=== PATIENT | female | born 1940 | race Caucasian/White ===

== ENCOUNTER 2021-09-27 13:32 | Observation (INO) ==
[2021-09-27] MEDS ORDERED: MORPHINE SULFATE INJ 4 MG IVP ONE (13:45)
[2021-09-27] MEDS ORDERED: ZOFRAN INJ 4 MG VIAL IVP ONE (13:48)
[2021-09-27] MEDS ORDERED: NS 500 ML IV 500 ML IV ONE (13:49)
[2021-09-27] MEDS ORDERED: ZOFRAN INJ 4 MG VIAL ONE (13:50)
[2021-09-27] MEDS ORDERED: MORPHINE SULFATE INJ 4 MG ONE (13:50)
--- NOTE | 2021-09-27 13:58 | DR.FBACK ---
HPI Time Seen Time Seen by Provider: 09/27/21 13:40 PCP Primary Care Physician: Olegario Complaint Chief Complaint Doctor Comments: 81 y/o female brought in by spouse after suffering fall. Was using a walker, spouse tried to help her off the curb, lost balance and fell backwards. Hit the back of her head. No LOC, but was stunned. Denies neck pain. Has a h/o cervical fusion. C/o mid to low back pain. Pain is sharp. Radiates from mid back to low back. + worse with palpation, breathing and movement. Better remaining still. Associated with dyspnea, slight nausea. Denies numbness or weakness. Denies blood thinning medicine. Only allergic to tetanus. Chief Complaint:: Pt c/o back pain and pain to posterior scalp s/p fall. She was sitting on a rolling scooter and her attempted to pull her off a curb and she fell onto her back. Pt c/o pain with respirations. She has a hematoma to her scalp. COVID-19 Coronavirus risk:travel/contact w/high risk person: No Has patient experienced Coronavirus symptoms: No Source History Provided: Patient Mode of Arrival Mode of Arrival: Wheelchair Timing Onset of Chief Complaint: 09/27/21 PMH PMH Past Medical History: Yes Past Medical History: Hypertension Past Surgical History: Yes Surgical History: Hysterectomy Family History History of Family Medical Conditions: No Social History Does patient currently use any type of tobacco product: No Have you used tobacco products in the last 12 months: No Type of Tobacco Use: None Does any household member use tobacco: No Alcohol Use: None Do you use any recreational Drugs:: No Lives With: Family Lives Where: Home Travel Risk Coronavirus risk:travel/contact w/high risk person: No Has patient experienced Coronavirus symptoms: No Infectious screening In the last 2 months have you had wt loss of >10#?: NO Have you had fever, night sweats or hemotysis?: No Have you traveled outside the country in the last 6 months?: No Isolation: Standard ROS Review of Systems Constitutional: No Symptoms Reported Eyes: No Symptoms Reported ENTM: No Symptoms Reported Respiratoy: Short of Breath Cardiovascular: No Symptoms Reported Gastrointestinal/Abdominal: Nausea Genitourinary: No Symptoms Reported Neurological: Headache Musculoskeletal: Back Pain Integumentary: No Symptoms Reported Hematologic/Lymphatic: No Symptoms Reported Endocrine: No Symptoms Reported Psychiatric: No Symptoms Reported All Other Systems: Reviewed and Negative PE Vitals Vital Signs: Temp Pulse Resp BP BP Pulse Ox 09/27/21 14:00 19 09/27/21 13:32 97.4 F L 75 20 194/88 98 07/21/21 14:39 122/56 General Limitations: No Limitations General Appearance: Alert and In Distress Head Head Exam: Other (+ posterior scalp hematoma, with tenderness, no active bleeding) Eyes Eye exam: Normal Appearance, PERRL and EOMI ENT ENT Exam: Normal Exam Chest Chest Inspection: Normal Inspection Respiratory Respiratory Exam: Normal Lung Sounds Bilat; negative Accessory Muscle Use and Respiratory Distress Respiratory Exam: Bilateral: Clear to Auscultation Cardiovascular Cardiovascular Exam: Regular Rate, Normal Rhythm and Normal Heart Sounds Abdominal Exam Abdominal Exam: Normal Inspection, Normal Bowel Sounds and Soft Extremities Extremities Exam: Normal Inspection and Full ROM Back Back Exam: Tenderness (thoracic and lumbar midline, no crepitus. ) Neurological Neurological Exam: Alert, Oriented X3 and CN II-XII Intact; negative Motor Sensory Deficit Psychiatric Psychiatric Exam: Normal Affect Skin Skin Exam: Warm, Dry and Intact MDM Differential Diagnosis Differential Diagnosis: Fracture (contusion, muscle strain, ICH) COURSE Treatment Treatment: Elderly female fell backwards, hit head/back. Will CT head, thoracic and lumbar areas. No cervical tenderness, has previous fusion. Given IV morphi ne/zofran. 1453 - pt doing better after IV analgesia. CT studies without acute abnormalities. Will d/c to home. To rest, use ice to heat. Tylenol for mild discomfort. Will prescribe low dose diazepam for muscle spasms. Pt does have tramadol at home, she can add on top. ROR XRAY XRAY Interpreted by: Radiologist X-ray Results: CT head, thoracic spine and lumbar spine - no acute abnormalities Opioid Opioid Risk Tool Age (Jay box if 16-45): No History of Preadolescent Sexual Abuse: No Total: 0 Total Score Risk Category: Low Risk Copyright: Garibay LR predicting aberrant behaviors Diagnosis Discharge Problem: Back contusion Qualifiers: Encounter type: initial encounter Contusion of head Qualifiers: Encounter type: initial encounter Contusion of head detail: scalp Qualified Code(s): S00.03XA - Contusion of scalp, initial encounter
[2021-09-27] MEDS: NS 500 ML IV 500 ML IV SCH ×2 (14:01→20:36)
--- NOTE | 2021-09-27 14:34 | CT ---
HISTORYFall, head injurySTUDYCT head without contrastTechnique: Axial noncontrast images with coronal and sagittal reformats. Dose reduction procedures were used with mA/kv adjusted for body size.[id number]/12/2019FINDINGSVentric les are normal in size shape and position. There is decreased attenuation in the periventricular white matter suggestive of small vessel vascular disease. Generalized cortical atrophy is present likely age related. There are no focal areas of abnormal attenuation to suggest recent or remote CVA, hemorrhage, contusion, mass lesion, or extra-axial fluid collection. The visualized sinuses are clear. The calvarium is intact.IMPRESSIONNo acute intracranial abnormalityGeneralized atrophy likely age relatedSmall-vessel diseaseElectronically signed by: MARY TIJERINA (Sep 27, 2021 14:32:28)
--- NOTE | 2021-09-27 14:42 | CT ---
HISTORYPt c/o back pain and pain to posterior scalp s/p fall. She was sitting on a rolling scooter and her attempted to pull her off a curb and she fell onto her backSTUDYTHORACIC SPINE W/O CONCOMPARISONNoneTECHNIQUEMultiple CT axial images of the thoracic spine were obtained without IV contrast. Coronal and sagittal images were reconstructed. Dose reduction techniques included Automated Exposure Control (AEC) and adjustment of mA and kV.FINDINGSThere is no significant scoliosis. The usual kyphosis is maintained.The heights of the vertebral bodies are normal. No subluxation. There is no fracture.Mild degenerative changes are present at multiple levels.Fixation hardware is present in the cervical spine.No pleural effusion or pneumothorax.IMPRESSION1. No acute findingElectronically signed by: Deondre Giordano (Sep 27, 2021 14:40:48)
--- NOTE | 2021-09-27 14:49 | CT ---
HISTORYPt c/o back pain and pain to posterior scalp s/p fall. She was sitting on a rolling scooter and her attempted to pull her off a curb and she fell onto her backSTUDYLUMBAR SPINE W/O [id number]/2021TECHNIQUEAxial images through the lumbar spine were performed without contrast. CT scan was performed following ALARA (As low as Reasonably Achievable).Coronal and Sagittal reformatted images were performed.FINDINGSThere 5 fep-wre-iyryzpu lumbar type vertebral bodies. There is preservation of the lumbar lordosis. There is no evidence of acute fractures, the sacroiliac joints demonstrate bilateral degenerative changes. There is no focal dilatation of the abdominal aorta. The lung bases demonstrate minimal increase of the interstitial markings. There is no evidence of adrenal masses. No hydronephrosis, no focal dilatation of the abdominal aorta. The prevertebral soft tissues and unremarkable.Findings in the axial images as follows:T10-T11 T11-T12,T12-L1 and L1-L2 demonstrate no focal abnormalitiesL2-L3 no evidence of a spinal canal or neural foraminal stenosisL3-L4 there is a small disc osteophyte and mild facet hypertrophy, no evidence of a spinal canal stenosis, there is mild bilateral neural foraminal stenosesL4-L5 there is again seen vacuum phenomenon. There is a central disc bulging, there has been interval increase air along the right paracentral inferior region that could correspond with a disc extrusion, there appears to be mass effect in the right epidural nerve root, there is xnlfoptk-tz-iaewtm narrowing of the spinal canal, there is severe ligamentum flavum and facet hypertrophy. There are lateral disc osteophyte with uyjlcowv-ca-ffoobk bilateral neural foraminal stenoses.L5-S1 there is a central disc osteophyte with a right paracentral component with mass effect in the S1 nerve root unchanged since prior study. There is a right lateral disc osteophyte with svouipjn-kp-nxfdxl right neural foraminal stenosis, the left neural foramina is patent.IMPRESSIONNo evidence of acute lumbar spine fracturesDegenerative disease at L4-L5 with increase air along the right paracentral inferior region probably due to a right paracentral disc extrusion. Zflurwtj-ei-znuqos narrowing of the spinal canal at L4-L5 due to posterior element hypertrophy and disc osteophyte.Unchanged right paracentral disc osteophyte at L5-S1 with mass effect in the right epidural nerve root and prwypgpn-er-dnkrib right neural foraminal stenosis.Electronically signed by: Maryanne Hobson (Sep 27, 2021 14:47:36)
--- NOTE | 2021-09-27 14:56 | RAD ---
HISTORYFall, back painSTUDYChest AP [id number]/17/2021FINDINGSHear t size is normal. Ev are normal. Right hemidiaphragm is chronically elevated. Lung combs are clear. No pleural effusion or pneumothorax is identified. Bony thorax is unremarkable.IMPRESSIONNo significant abnormality identifiedElectronically signed by: MARY TIJERINA (Sep 27, 2021 14:54:29)
[2021-09-27] MEDS ORDERED: ATIVAN INJ 2 MG VIAL IVP ONE (15:23)
[2021-09-27] MEDS ORDERED: ATIVAN INJ 2 MG VIAL ONE (15:25)
[2021-09-27] MEDS ORDERED: ATIVAN INJ 2 MG VIAL IVP PRN (19:17)
[2021-09-27] MEDS ORDERED: ULTRAM PO PRN (19:17)
[2021-09-27 20:16] VITALS: BMI 32.9
[2021-09-27] MEDS: COZAAR PO SCH (20:36)
[2021-09-27] MEDS: MORPHINE SULFATE INJ 4 MG IVP PRN (20:37)
[2021-09-27] MEDS ORDERED: APRESOLINE INJ 20 MG VIAL IVP PRN (23:28)
[2021-09-27] MEDS ORDERED: CATAPRES TAB 0.1 MG PO SCH (23:45)
[2021-09-27] MEDS: CATAPRES TAB 0.1 MG PO PRN (23:55)
[2021-09-27 23:57] LABS: BASOPHILS % (AUTO) 0.4 % (0.2-1.0); EOSINOPHILS # (AUTO) 0.1 x10^3/uL (0.0-0.2); HEMATOCRIT 37.2 % (36.0-47.0); HEMOGLOBIN 12.5 g/dL (12.0-16.0); LYMPHOCYTES # (AUTO) 1.5 X10^3/uL (1.3-2.9); LYMPHOCYTES % (AUTO) 18.1 % (21.0-51.0); MEAN CORPUSCULAR HEMOGLOBIN 30.1 pg (27.0-34.0); MEAN CORPUSCULAR HGB CONC 33.7 g/dL (33.0-35.0); MEAN CORPUSCULAR VOLUME 89.4 fL (80.0-100.0); MEAN PLATELET VOLUME 7.9 fL (7.4-11.0); MONOCYTES # (AUTO) 0.4 x10^3/uL (0.3-0.8); MONOCYTES % (AUTO) 5.3 % (0.0-13.0); NEUTROPHILS # (AUTO) 6.1 x10^3/uL (2.2-4.8); NEUTROPHILS % (AUTO) 75.2 % (42.0-75.0); PLATELET COUNT 287 X10^3/uL (150.0-450.0); RED BLOOD COUNT 4.16 X10^6/uL (3.5-5.4); RED CELL DISTRIBUTION WIDTH 14.6 % (11.6-16.5); WHITE BLOOD COUNT 8.1 X10^3/uL (3.6-10.0)
[2021-09-28 00:07] LABS: ALANINE AMINOTRANSFERASE 19 Units/L (12-78); ALKALINE PHOSPHATASE 115 Units/L (46-116); ASPARTATE AMINO TRANSFERASE 18 Units/L (15-37); BLOOD UREA NITROGEN 11 mg/dL (7-18); CALCIUM 8.4 mg/dL (8.5-10.1); CARBON DIOXIDE 31.1 mmol/L (21-32); CHLORIDE 105 mmol/L (98-107); COR CA(FOR HYPOALB) 9.2 mg/dL (8.5-10.1); COR NA(FOR HYPERGLY) 142 mmol/L (136-145); CREATININE 0.72 mg/dL (0.55-1.02); SODIUM 141 mmol/L (136-145); TOTAL PROTEIN 6.5 g/dL (6.4-8.2); eGFR NON BLACK RACES > 60 (>60)
[2021-09-28] MEDS: SOLU-Medrol 40 MG VIAL IVP SCH ×3 (00:07→13:40)
[2021-09-28] MEDS: NORCO 7.5/325 MG TAB PO PRN ×4 (00:37→20:19)
[2021-09-28] MEDS: NS 500 ML IV 500 ML IV SCH ×3 (02:00→13:41)
[2021-09-28] MEDS: MORPHINE SULFATE INJ 4 MG IVP PRN (04:49)
[2021-09-28 04:53] LABS: BILIRUBIN,URINE NEGATIVE (NEGATIVE); BLOOD/HEMOGLOBIN,URINE 1+ (NEGATIVE); GLUCOSE, URINE NEGATIVE (NEGATIVE); KETONES,URINE NEGATIVE (NEGATIVE); LEUKOCYTE ESTERASE ,URINE NEGATIVE (NEGATIVE); NITRITES,URINE NEGATIVE (NEGATIVE); PROTEIN,URINE NEGATIVE (NEGATIVE); UROBILINOGEN,URINE NORMAL (NORMAL)
[2021-09-28 05:10] LABS: APPEARANCE,URINE CLEAR (CLEAR); BACTERIA,URINE NEGATIVE /HPF (NEGATIVE); COLOR,URINE YELLOW (YELLOW); RBC,URINE 0-2 /HPF (0-3); SQUAMOUS EPITHELIAL CELL,UR RARE /HPF (NEGATIVE)
[2021-09-28] MEDS: COZAAR PO SCH ×2 (08:30→20:18)
[2021-09-28] MEDS: ZOFRAN INJ 4 MG VIAL IVP PRN ×2 (10:57→20:57)
--- NOTE | 2021-09-28 12:35 | RAD ---
Exam:ELBOW, RIGHTIndication: S/P FALL, C/O PAIN RT ELBOW AND HUMERUSComparison: [None available]Findings: [No acute fracture or malalignment of the right elbow. No significant joint effusion or fat pad displacement. Degenerative changes of the radial capitellar and ulna humeral joints. No localizing soft tissue swelling.]IMPRESSIONNo acute fracture or malalignment of the right elbow.Degenerative changes of the radial capitellar and ulna humeral joints.Electronically signed by: ROXANNA CHISHOLM (Sep 28, 2021 12:33:57)
--- NOTE | 2021-09-28 12:36 | RAD ---
Exam:HUMERUS, RIGHTIndication: S/P FALL, C/O PAIN RT ELBOW AND HUMERUSComparison: [None available]Findings: [The [right] humerus demonstrates no acute fracture or malalignment.No localizing soft tissue swelling.There is anatomic alignment of the AC and glenohumeral joints.Degenerate change the AC and elbow joints.Impression:No acute radiographic abnormality.Degenerative change of the AC and elbow joints.Electronically signed by: ROXANNA CHISHOLM (Sep 28, 2021 12:34:59)
[2021-09-28] MEDS: NS 1,000 ML IV 1,000 ML IV SCH (20:38)
[2021-09-29 06:05] LABS: BASOPHILS % (AUTO) 0.2 % (0.2-1.0); HEMATOCRIT 36.1 % (36.0-47.0); LYMPHOCYTES % (AUTO) 5.7 % (21.0-51.0); MEAN CORPUSCULAR HEMOGLOBIN 29.9 pg (27.0-34.0); MEAN CORPUSCULAR HGB CONC 33.3 g/dL (33.0-35.0); MEAN CORPUSCULAR VOLUME 89.9 fL (80.0-100.0); MEAN PLATELET VOLUME 8.8 fL (7.4-11.0); MONOCYTES # (AUTO) 0.5 x10^3/uL (0.3-0.8); MONOCYTES % (AUTO) 2.7 % (0.0-13.0); NEUTROPHILS # (AUTO) 15.5 x10^3/uL (2.2-4.8); NEUTROPHILS % (AUTO) 91.4 % (42.0-75.0); PLATELET COUNT 292 X10^3/uL (150.0-450.0); RED BLOOD COUNT 4.01 X10^6/uL (3.5-5.4); RED CELL DISTRIBUTION WIDTH 14.4 % (11.6-16.5)
[2021-09-29 06:12] LABS: BLOOD UREA NITROGEN 14 mg/dL (7-18); CALCIUM 8.4 mg/dL (8.5-10.1); CARBON DIOXIDE 28.5 mmol/L (21-32); CHLORIDE 109 mmol/L (98-107); COR NA(FOR HYPERGLY) 144 mmol/L (136-145); CREATININE 0.69 mg/dL (0.55-1.02); SODIUM 143 mmol/L (136-145); eGFR NON BLACK RACES > 60 (>60)
[2021-09-29 06:21] LABS: WHITE BLOOD COUNT 16.9 X10^3/uL (3.6-10.0)
[2021-09-29 06:58] LABS: BAND NEUTROPHILS % 4 % (0-10); PLATELET MORPHOLOGY COMMENT NORMAL (NORMAL)
[2021-09-29] MEDS: COZAAR PO SCH ×2 (08:27→20:00)
[2021-09-29] MEDS: NORCO 7.5/325 MG TAB PO PRN ×3 (08:27→19:54)
[2021-09-29] MEDS: NS 1,000 ML IV 1,000 ML IV SCH (10:08)
[2021-09-29] MEDS: ROCEPHIN VIAL 1 GRAM 1 G in NS 100 ML IV + SPIKE MINIBAG* 100 ML IV SCH (11:00)
--- NOTE | 2021-09-29 11:10 | PCM.PROG ---
Progress Note Progress Note for Day of Date of Exam: 09/28/21 Subjective Subjective: Patient seen at bedside, no events overnight. Patient admitted after having a fall. Imaging (-) for any acute fracture. Patient states pain being controlled with medications. She does complain for right arm and elbow pain. She reports some nausea. Labs reviewed Imaging reviewed Plan: will order right arm and elbow XRs. Continue steroids and pain control. Add Zofran. Advised patient so sit up as tolerated. Resume home medication. Monitor AM labs/imaging. Past Medical Family Social History Past Med/Fam/Surg Hx: No changes since H&P Allergies: Allergies tetanus and diphtheria toxoids Allergy (Verified 09/27/21 13:41) Vital Signs and I&O's Vital Signs: Temperature 97.6 F Pulse Rate [Right Brachial] 72 Pulse Rate [Left Radial] 64 Pulse Rate 75 Respiratory Rate 20 Blood Pressure [Right Arm] 127/60 Blood Pressure [Left Arm] 147/66 Blood Pressure 194/88 O2 Sat by Pulse Oximetry 99 Intake and Output: Intake & Output 09/26/21 09/27/21 09/28/21 09/29/21 23:59 23:59 23:59 23:59 Intake Total 620 / 620 2390 / 2390 100 / 100 Balance 620 / 620 2390 / 2390 100 / 100 Physical Exam Oriented: Normal Eyes: Normal Ear: Normal Nose: Normal Throat: Normal Respiratory: Normal Cardiovascular: Normal Auscultation: Bowel Sounds: Normal Tenderness: Normal Skin: Normal Musculoskeletal: Right, Arm, Forearm, Back:Thoracic, Back:Lumbar, Back:Midline, Back:Paraspinous, Tender and Motor Deficit Psychiatric: Normal Mood Description: Calm Affect: Normal Speech Pattern: Clear and Appropriate Laboratory and Diagnostics Result Diagrams: 09/29/21 05:20 09/29/21 05:20 Labs: 09/28/21 04:40 Urine,Clean Catch Urine Culture - Final Laboratory WBC 16.9 X10^3/uL (3.6-10.0) H D 09/29/21 05:20 RBC 4.01 X10^6/uL (3.5-5.4) 09/29/21 05:20 Hgb 12.0 g/dL (12.0-16.0) 09/29/21 05:20 Hct 36.1 % (36.0-47.0) 09/29/21 05:20 MCV 89.9 fL (80.0-100.0) 09/29/21 05:20 MCH 29.9 pg (27.0-34.0) 09/29/21 05:20 MCHC 33.3 g/dL (33.0-35.0) 09/29/21 05:20 RDW 14.4 % (11.6-16.5) 09/29/21 05:20 Plt Count 292 X10^3/uL (150.0-450.0) 09/29/21 05:20 Plt Count Comment Adequate (ADEQUATE) 09/29/21 05:20 MPV 8.8 fL (7.4-11.0) 09/29/21 05:20 Neut % (Auto) 91.4 % (42.0-75.0) H 09/29/21 05:20 Lymph % (Auto) 5.7 % (21.0-51.0) L 09/29/21 05:20 [place] % (Auto) 2.7 % (0.0-13.0) 09/29/21 05:20 Eos % (Auto) 0.0 % (0.9-2.9) L 09/29/21 05:20 Baso % (Auto) 0.2 % (0.2-1.0) 09/29/21 05:20 Neut # (Auto) 15.5 x10^3/uL (2.2-4.8) H 09/29/21 05:20 Lymph # (Auto) 1.0 X10^3/uL (1.3-2.9) L 09/29/21 05:20 [place] # (Auto) 0.5 x10^3/uL (0.3-0.8) 09/29/21 05:20 Eos # (Auto) 0.0 x10^3/uL (0.0-0.2) 09/29/21 05:20 Baso # (Auto) 0.0 X10^3/uL (0.0-0.1) 09/29/21 05:20 Absolute Nucleated RBC 0.0 /100WBC 09/29/21 05:20 Total Counted 100 09/29/21 05:20 Neutrophils % (Manual) 91 % (39-76) H 09/29/21 05:20 Band Neutrophils % 4 % (0-10) 09/29/21 05:20 Lymphocytes % (Manual) 5 % (13-43) L 09/29/21 05:20 Plt Morphology Comment Normal (NORMAL) 09/29/21 05:20 RBC Morphology Normal (NORMAL) 09/29/21 05:20 Sodium 143 mmol/L (136-145) 09/29/21 05:20 Corrected Sodium 144 mmol/L (136-145) 09/29/21 05:20 Potassium 4.6 mmol/L (3.5-5.1) 09/29/21 05:20 Chloride 109 mmol/L (98-107) H 09/29/21 05:20 Carbon Dioxide 28.5 mmol/L (21-32) 09/29/21 05:20 BUN 14 mg/dL (7-18) 09/29/21 05:20 Creatinine 0.69 mg/dL (0.55-1.02) 09/29/21 05:20 Est GFR (MDRD) Af Amer > 60 (>60) 09/29/21 05:20 Est GFR (MDRD) Non-Af > 60 (>60) 09/29/21 05:20 Glucose 129 mg/dL (65-99) H 09/29/21 05:20 Calcium 8.4 mg/dL (8.5-10.1) L 09/29/21 05:20 Corrected Calcium 9.2 mg/dL (8.5-10.1) 09/27/21 23:47 Total Bilirubin 0.30 mg/dL (0.2-1.0) 09/27/21 23:47 AST 18 Units/L (15-37) 09/27/21 23:47 ALT 19 Units/L (12-78) 09/27/21 23:47 Alkaline Phosphatase 115 Units/L (46-116) 09/27/21 23:47 Total Protein 6.5 g/dL (6.4-8.2) 09/27/21 23:47 Albumin 3.0 g/dL (3.4-5.0) L 09/27/21 23:47 Globulin 3.5 g/dL (2.5-4.5) 09/27/21 23:47 Albumin/Globulin Ratio 0.9 Ratio (1.1-2.1) L 09/27/21 23:47 Specimen Type Clean catch urine 09/28/21 04:40 Urine Color Yellow (YELLOW) 09/28/21 04:40 Urine Appearance Clear (CLEAR) 09/28/21 04:40 Urine pH 6.0 (5.0 - 8.0) 09/28/21 04:40 Ur Specific [place] 1.025 (1.000-1.030) 09/28/21 04:40 Urine Protein Negative (NEGATIVE) 09/28/21 04:40 Urine Glucose (UA) Negative (NEGATIVE) 09/28/21 04:40 Urine Ketones Negative (NEGATIVE) 09/28/21 04:40 Urine Occult Blood 1+ (NEGATIVE) 09/28/21 04:40 Urine Nitrite Negative (NEGATIVE) 09/28/21 04:40 Urine Bilirubin Negative (NEGATIVE) 09/28/21 04:40 Urine Urobilinogen Normal (NORMAL) 09/28/21 04:40 Ur Leukocyte Esterase Negative (NEGATIVE) 09/28/21 04:40 Urine RBC 0-2 /HPF (0-3) 09/28/21 04:40 Urine WBC 0-2 /HPF (0-5) 09/28/21 04:40 Ur Squamous Epith Cells Rare /HPF (NEGATIVE) 09/28/21 04:40 Urine Bacteria Negative /HPF (NEGATIVE) 09/28/21 04:40 Ur Culture Indicated? Yes/culture set up 09/28/21 04:40 SARS CoV-2 RNA Rapid CHERRI Negative (NEGATIVE) 09/27/21 17:42 Plan (1) Fall: Status: Acute Qualifiers: Encounter type: initial encounter Qualified Code(s): W19.XXXA - Unspecified fall, initial encounter (2) Multilevel degenerative disc disease: Status: Acute (3) Lumbar stenosis: Status: Acute Qualifiers: Neurogenic claudication status: unspecified Qualified Code(s): M48.061 - Spinal stenosis, lumbar region without neurogenic claudication (4) Contusion of head: Status: Acute Qualifiers: Contusion of head detail: scalp Encounter type: initial encounter Qualified Code(s): S00.03XA - Contusion of scalp, initial encounter
--- NOTE | 2021-09-29 11:16 | PCM.PROG ---
Progress Note Progress Note for Day of Date of Exam: 09/29/21 Subjective Subjective: Patient seen at bedside, no events overnight. She has not been able to get up much due to back pain. She sat up to eat but has no ambulated. She states her right arm is better. Urine Cx did show more than 3 organisms. Labs reviewed Imaging reviewed Plan: Will start Rocephin. PT consult, advised patient to sit up and change position as tolerated. Ambulate as tolerated. Discussed to use IS. Continue pain control. Monitor AM labs/imaging. Past Medical Family Social History Past Med/Fam/Surg Hx: No changes since H&P Allergies: Allergies tetanus and diphtheria toxoids Allergy (Verified 09/27/21 13:41) Review of Systems ROS: No change since H&P Vital Signs and I&O's Vital Signs: Temperature 97.6 F Pulse Rate [Right Brachial] 72 Pulse Rate [Left Radial] 64 Pulse Rate 75 Respiratory Rate 20 Blood Pressure [Right Arm] 127/60 Blood Pressure [Left Arm] 147/66 Blood Pressure 194/88 O2 Sat by Pulse Oximetry 99 Intake and Output: Intake & Output 09/26/21 09/27/21 09/28/21 09/29/21 23:59 23:59 23:59 23:59 Intake Total 620 / 620 2390 / 2390 100 / 100 Balance 620 / 620 2390 / 2390 100 / 100 Physical Exam Oriented: Normal Eyes: Normal Ear: Normal Nose: Normal Throat: Normal Respiratory: Normal Cardiovascular: Normal Auscultation: Bowel Sounds: Normal Tenderness: Normal Skin: Normal Musculoskeletal: Right, Arm, Forearm, Back:Thoracic, Back:Lumbar, Back:Midline, Back:Paraspinous, Tender and Motor Deficit Psychiatric: Normal Mood Description: Calm Affect: Normal Speech Pattern: Clear and Appropriate Laboratory and Diagnostics Result Diagrams: 09/29/21 05:20 09/29/21 05:20 Labs: 09/28/21 04:40 Urine,Clean Catch Urine Culture - Final Laboratory WBC 16.9 X10^3/uL (3.6-10.0) H D 09/29/21 05:20 RBC 4.01 X10^6/uL (3.5-5.4) 09/29/21 05:20 Hgb 12.0 g/dL (12.0-16.0) 09/29/21 05:20 Hct 36.1 % (36.0-47.0) 09/29/21 05:20 MCV 89.9 fL (80.0-100.0) 09/29/21 05:20 MCH 29.9 pg (27.0-34.0) 09/29/21 05:20 MCHC 33.3 g/dL (33.0-35.0) 09/29/21 05:20 RDW 14.4 % (11.6-16.5) 09/29/21 05:20 Plt Count 292 X10^3/uL (150.0-450.0) 09/29/21 05:20 Plt Count Comment Adequate (ADEQUATE) 09/29/21 05:20 MPV 8.8 fL (7.4-11.0) 09/29/21 05:20 Neut % (Auto) 91.4 % (42.0-75.0) H 09/29/21 05:20 Lymph % (Auto) 5.7 % (21.0-51.0) L 09/29/21 05:20 [place] % (Auto) 2.7 % (0.0-13.0) 09/29/21 05:20 Eos % (Auto) 0.0 % (0.9-2.9) L 09/29/21 05:20 Baso % (Auto) 0.2 % (0.2-1.0) 09/29/21 05:20 Neut # (Auto) 15.5 x10^3/uL (2.2-4.8) H 09/29/21 05:20 Lymph # (Auto) 1.0 X10^3/uL (1.3-2.9) L 09/29/21 05:20 [place] # (Auto) 0.5 x10^3/uL (0.3-0.8) 09/29/21 05:20 Eos # (Auto) 0.0 x10^3/uL (0.0-0.2) 09/29/21 05:20 Baso # (Auto) 0.0 X10^3/uL (0.0-0.1) 09/29/21 05:20 Absolute Nucleated RBC 0.0 /100WBC 09/29/21 05:20 Total Counted 100 09/29/21 05:20 Neutrophils % (Manual) 91 % (39-76) H 09/29/21 05:20 Band Neutrophils % 4 % (0-10) 09/29/21 05:20 Lymphocytes % (Manual) 5 % (13-43) L 09/29/21 05:20 Plt Morphology Comment Normal (NORMAL) 09/29/21 05:20 RBC Morphology Normal (NORMAL) 09/29/21 05:20 Sodium 143 mmol/L (136-145) 09/29/21 05:20 Corrected Sodium 144 mmol/L (136-145) 09/29/21 05:20 Potassium 4.6 mmol/L (3.5-5.1) 09/29/21 05:20 Chloride 109 mmol/L (98-107) H 09/29/21 05:20 Carbon Dioxide 28.5 mmol/L (21-32) 09/29/21 05:20 BUN 14 mg/dL (7-18) 09/29/21 05:20 Creatinine 0.69 mg/dL (0.55-1.02) 09/29/21 05:20 Est GFR (MDRD) Af Amer > 60 (>60) 09/29/21 05:20 Est GFR (MDRD) Non-Af > 60 (>60) 09/29/21 05:20 Glucose 129 mg/dL (65-99) H 09/29/21 05:20 Calcium 8.4 mg/dL (8.5-10.1) L 09/29/21 05:20 Corrected Calcium 9.2 mg/dL (8.5-10.1) 09/27/21 23:47 Total Bilirubin 0.30 mg/dL (0.2-1.0) 09/27/21 23:47 AST 18 Units/L (15-37) 09/27/21 23:47 ALT 19 Units/L (12-78) 09/27/21 23:47 Alkaline Phosphatase 115 Units/L (46-116) 09/27/21 23:47 Total Protein 6.5 g/dL (6.4-8.2) 09/27/21 23:47 Albumin 3.0 g/dL (3.4-5.0) L 09/27/21 23:47 Globulin 3.5 g/dL (2.5-4.5) 09/27/21 23:47 Albumin/Globulin Ratio 0.9 Ratio (1.1-2.1) L 09/27/21 23:47 Specimen Type Clean catch urine 09/28/21 04:40 Urine Color Yellow (YELLOW) 09/28/21 04:40 Urine Appearance Clear (CLEAR) 09/28/21 04:40 Urine pH 6.0 (5.0 - 8.0) 09/28/21 04:40 Ur Specific [place] 1.025 (1.000-1.030) 09/28/21 04:40 Urine Protein Negative (NEGATIVE) 09/28/21 04:40 Urine Glucose (UA) Negative (NEGATIVE) 09/28/21 04:40 Urine Ketones Negative (NEGATIVE) 09/28/21 04:40 Urine Occult Blood 1+ (NEGATIVE) 09/28/21 04:40 Urine Nitrite Negative (NEGATIVE) 09/28/21 04:40 Urine Bilirubin Negative (NEGATIVE) 09/28/21 04:40 Urine Urobilinogen Normal (NORMAL) 09/28/21 04:40 Ur Leukocyte Esterase Negative (NEGATIVE) 09/28/21 04:40 Urine RBC 0-2 /HPF (0-3) 09/28/21 04:40 Urine WBC 0-2 /HPF (0-5) 09/28/21 04:40 Ur Squamous Epith Cells Rare /HPF (NEGATIVE) 09/28/21 04:40 Urine Bacteria Negative /HPF (NEGATIVE) 09/28/21 04:40 Ur Culture Indicated? Yes/culture set up 09/28/21 04:40 SARS CoV-2 RNA Rapid CHERRI Negative (NEGATIVE) 09/27/21 17:42 Plan (1) Fall: Status: Acute Qualifiers: Encounter type: initial encounter Qualified Code(s): W19.XXXA - Unspecified fall, initial encounter (2) Multilevel degenerative disc disease: Status: Acute (3) Lumbar stenosis: Status: Acute Qualifiers: Neurogenic claudication status: unspecified Qualified Code(s): M48.061 - Spinal stenosis, lumbar region without neurogenic claudication (4) Contusion of head: Status: Acute Qualifiers: Contusion of head detail: scalp Encounter type: initial encounter Qualified Code(s): S00.03XA - Contusion of scalp, initial encounter
[2021-09-29] MEDS: LOVENOX INJ 40 MG SYR SC SCH (12:52)
[2021-09-29] MEDS: NS 500 ML IV 500 ML IV SCH (19:03)
[2021-09-30 05:03] LABS: BASOPHILS # (AUTO) 0.1 X10^3/uL (0.0-0.1); BASOPHILS % (AUTO) 0.5 % (0.2-1.0); EOSINOPHILS % (AUTO) 0.4 % (0.9-2.9); HEMATOCRIT 33.9 % (36.0-47.0); HEMOGLOBIN 11.2 g/dL (12.0-16.0); LYMPHOCYTES # (AUTO) 2.9 X10^3/uL (1.3-2.9); LYMPHOCYTES % (AUTO) 21.2 % (21.0-51.0); MEAN CORPUSCULAR HEMOGLOBIN 29.8 pg (27.0-34.0); MEAN CORPUSCULAR HGB CONC 33.2 g/dL (33.0-35.0); MEAN CORPUSCULAR VOLUME 89.9 fL (80.0-100.0); MEAN PLATELET VOLUME 8.8 fL (7.4-11.0); MONOCYTES # (AUTO) 0.7 x10^3/uL (0.3-0.8); MONOCYTES % (AUTO) 5.2 % (0.0-13.0); NEUTROPHILS # (AUTO) 9.9 x10^3/uL (2.2-4.8); NEUTROPHILS % (AUTO) 72.7 % (42.0-75.0); PLATELET COUNT 289 X10^3/uL (150.0-450.0); RED BLOOD COUNT 3.77 X10^6/uL (3.5-5.4); RED CELL DISTRIBUTION WIDTH 14.5 % (11.6-16.5); WHITE BLOOD COUNT 13.7 X10^3/uL (3.6-10.0)
[2021-09-30 05:15] LABS: BLOOD UREA NITROGEN 17 mg/dL (7-18); CARBON DIOXIDE 27.3 mmol/L (21-32); CHLORIDE 109 mmol/L (98-107); CREATININE 0.78 mg/dL (0.55-1.02); SODIUM 143 mmol/L (136-145); eGFR NON BLACK RACES > 60 (>60)
[2021-09-30] MEDS: COZAAR PO SCH ×2 (08:41→21:24)
[2021-09-30] MEDS: ROCEPHIN VIAL 1 GRAM 1 G in NS 100 ML IV + SPIKE MINIBAG* 100 ML IV SCH (08:41)
[2021-09-30] MEDS: LOVENOX INJ 40 MG SYR SC SCH ×2 (08:41→08:48)
--- NOTE | 2021-09-30 10:49 | PCM.PROG ---
Progress Note Progress Note for Day of Date of Exam: 09/30/21 Subjective Subjective: Patient seen at bedside, no events overnight. She is sitting up in the chair and feels a lot better. She did work with PT yesterday and did well. She did ambulate as tolerated. She states pain is fairly well controlled. She does report not having a BM in a few days. Labs reviewed Imaging reviewed Plan: Will add docusate. Continue Rocephin. Continue PT/OT. Ambulate as tolerated. Discussed to use IS. Continue pain control. Monitor AM labs/imaging. Past Medical Family Social History Past Med/Fam/Surg Hx: No changes since H&P Allergies: Allergies tetanus and diphtheria toxoids Allergy (Verified 09/27/21 13:41) Review of Systems ROS: No change since H&P Vital Signs and I&O's Vital Signs: Temperature 98.1 F Pulse Rate [Right Brachial] 81 Pulse Rate [Left Radial] 64 Pulse Rate 75 Respiratory Rate 18 Blood Pressure [Right Arm] 184/83 Blood Pressure [Left Arm] 147/66 Blood Pressure 194/88 O2 Sat by Pulse Oximetry 94 Intake and Output: Intake & Output 09/27/21 09/28/21 09/29/21 09/30/21 23:59 23:59 23:59 23:59 Intake Total 620 / 620 2390 / 2390 1310 / 1310 Balance 620 / 620 2390 / 2390 1310 / 1310 Physical Exam Oriented: Normal Eyes: Normal Ear: Normal Nose: Normal Throat: Normal Respiratory: Normal Cardiovascular: Normal Auscultation: Bowel Sounds: Normal Tenderness: Normal Skin: Normal Musculoskeletal: Right, Arm, Forearm, Back:Thoracic, Back:Lumbar, Back:Midline, Back:Paraspinous, Tender and Motor Deficit Psychiatric: Normal Mood Description: Calm Affect: Normal Speech Pattern: Clear and Appropriate Laboratory and Diagnostics Result Diagrams: 09/30/21 04:15 09/30/21 04:15 Labs: 09/28/21 04:40 Urine,Clean Catch Urine Culture - Final Laboratory WBC 13.7 X10^3/uL (3.6-10.0) H 09/30/21 04:15 RBC 3.77 X10^6/uL (3.5-5.4) 09/30/21 04:15 Hgb 11.2 g/dL (12.0-16.0) L 09/30/21 04:15 Hct 33.9 % (36.0-47.0) L 09/30/21 04:15 MCV 89.9 fL (80.0-100.0) 09/30/21 04:15 MCH 29.8 pg (27.0-34.0) 09/30/21 04:15 MCHC 33.2 g/dL (33.0-35.0) 09/30/21 04:15 RDW 14.5 % (11.6-16.5) 09/30/21 04:15 Plt Count 289 X10^3/uL (150.0-450.0) 09/30/21 04:15 Plt Count Comment Adequate (ADEQUATE) 09/29/21 05:20 MPV 8.8 fL (7.4-11.0) 09/30/21 04:15 Neut % (Auto) 72.7 % (42.0-75.0) 09/30/21 04:15 Lymph % (Auto) 21.2 % (21.0-51.0) 09/30/21 04:15 [place] % (Auto) 5.2 % (0.0-13.0) 09/30/21 04:15 Eos % (Auto) 0.4 % (0.9-2.9) L 09/30/21 04:15 Baso % (Auto) 0.5 % (0.2-1.0) 09/30/21 04:15 Neut # (Auto) 9.9 x10^3/uL (2.2-4.8) H 09/30/21 04:15 Lymph # (Auto) 2.9 X10^3/uL (1.3-2.9) 09/30/21 04:15 [place] # (Auto) 0.7 x10^3/uL (0.3-0.8) 09/30/21 04:15 Eos # (Auto) 0.0 x10^3/uL (0.0-0.2) 09/30/21 04:15 Baso # (Auto) 0.1 X10^3/uL (0.0-0.1) 09/30/21 04:15 Absolute Nucleated RBC 0.0 /100WBC 09/30/21 04:15 Total Counted 100 09/29/21 05:20 Neutrophils % (Manual) 91 % (39-76) H 09/29/21 05:20 Band Neutrophils % 4 % (0-10) 09/29/21 05:20 Lymphocytes % (Manual) 5 % (13-43) L 09/29/21 05:20 Plt Morphology Comment Normal (NORMAL) 09/29/21 05:20 RBC Morphology Normal (NORMAL) 09/29/21 05:20 Sodium 143 mmol/L (136-145) 09/30/21 04:15 Corrected Sodium TNP 09/30/21 04:15 Potassium 3.7 mmol/L (3.5-5.1) 09/30/21 04:15 Chloride 109 mmol/L (98-107) H 09/30/21 04:15 Carbon Dioxide 27.3 mmol/L (21-32) 09/30/21 04:15 BUN 17 mg/dL (7-18) 09/30/21 04:15 Creatinine 0.78 mg/dL (0.55-1.02) 09/30/21 04:15 Est GFR (MDRD) Af Amer > 60 (>60) 09/30/21 04:15 Est GFR (MDRD) Non-Af > 60 (>60) 09/30/21 04:15 Glucose 92 mg/dL (65-99) 09/30/21 04:15 Calcium 8.0 mg/dL (8.5-10.1) L 09/30/21 04:15 Corrected Calcium 9.2 mg/dL (8.5-10.1) 09/27/21 23:47 Total Bilirubin 0.30 mg/dL (0.2-1.0) 09/27/21 23:47 AST 18 Units/L (15-37) 09/27/21 23:47 ALT 19 Units/L (12-78) 09/27/21 23:47 Alkaline Phosphatase 115 Units/L (46-116) 09/27/21 23:47 Total Protein 6.5 g/dL (6.4-8.2) 09/27/21 23:47 Albumin 3.0 g/dL (3.4-5.0) L 09/27/21 23:47 Globulin 3.5 g/dL (2.5-4.5) 09/27/21 23:47 Albumin/Globulin Ratio 0.9 Ratio (1.1-2.1) L 09/27/21 23:47 Specimen Type Clean catch urine 09/28/21 04:40 Urine Color Yellow (YELLOW) 09/28/21 04:40 Urine Appearance Clear (CLEAR) 09/28/21 04:40 Urine pH 6.0 (5.0 - 8.0) 09/28/21 04:40 Ur Specific [place] 1.025 (1.000-1.030) 09/28/21 04:40 Urine Protein Negative (NEGATIVE) 09/28/21 04:40 Urine Glucose (UA) Negative (NEGATIVE) 09/28/21 04:40 Urine Ketones Negative (NEGATIVE) 09/28/21 04:40 Urine Occult Blood 1+ (NEGATIVE) 09/28/21 04:40 Urine Nitrite Negative (NEGATIVE) 09/28/21 04:40 Urine Bilirubin Negative (NEGATIVE) 09/28/21 04:40 Urine Urobilinogen Normal (NORMAL) 09/28/21 04:40 Ur Leukocyte Esterase Negative (NEGATIVE) 09/28/21 04:40 Urine RBC 0-2 /HPF (0-3) 09/28/21 04:40 Urine WBC 0-2 /HPF (0-5) 09/28/21 04:40 Ur Squamous Epith Cells Rare /HPF (NEGATIVE) 09/28/21 04:40 Urine Bacteria Negative /HPF (NEGATIVE) 09/28/21 04:40 Ur Culture Indicated? Yes/culture set up 09/28/21 04:40 SARS CoV-2 RNA Rapid CHERRI Negative (NEGATIVE) 09/27/21 17:42 Plan (1) Fall: Status: Acute Qualifiers: Encounter type: initial encounter Qualified Code(s): W19.XXXA - Unspecified fall, initial encounter (2) Multilevel degenerative disc disease: Status: Acute (3) Lumbar stenosis: Status: Acute Qualifiers: Neurogenic claudication status: unspecified Qualified Code(s): M48.061 - Spinal stenosis, lumbar region without neurogenic claudication (4) Contusion of head: Status: Acute Qualifiers: Contusion of head detail: scalp Encounter type: initial encounter Qualified Code(s): S00.03XA - Contusion of scalp, initial encounter
[2021-09-30] MEDS: COLACE CAP 100 MG PO SCH ×2 (11:09→11:13)
[2021-09-30] MEDS ORDERED: DULCOLAX TAB EC 5 MG PO ONE (11:14)
[2021-09-30] MEDS: CATAPRES TAB 0.1 MG PO PRN (11:37)
[2021-09-30] MEDS: NORCO 7.5/325 MG TAB PO PRN ×2 (14:33→21:22)
[2021-09-30] MEDS: ZOFRAN INJ 4 MG VIAL IVP PRN (22:53)
[2021-10-01] MEDS: COZAAR PO SCH (09:06)
[2021-10-01] MEDS: LOVENOX INJ 40 MG SYR SC SCH (09:14)
[2021-10-01] MEDS: ROCEPHIN VIAL 1 GRAM 1 G in NS 100 ML IV + SPIKE MINIBAG* 100 ML IV SCH (09:14)
--- NOTE | 2021-10-01 11:05 | W.DIS.FURT ---
Summary of Discharge Admission Diagnosis Patient Problems (Updated 09/29/21 @ 11:10 by Lucille Dumont) Back contusion (Acute) S20.229A Contusion of head (Acute) S00.93XA Vital Signs: Vital Signs (72 hours) 09/28/21 12:00 09/28/21 13:40 09/28/21 14:40 Temperature 97.6 F Pulse Rate [Left Radial] 79 Pulse Rate [Right Brachial] Respiratory Rate 20 21 20 Blood Pressure [Left Arm] 142/66 Blood Pressure [Right Arm] O2 Sat by Pulse Oximetry 95 09/28/21 16:00 09/28/21 20:00 09/28/21 20:19 Temperature 97.7 F 97.6 F Pulse Rate [Left Radial] 64 Pulse Rate [Right Brachial] 73 Respiratory Rate 21 20 21 Blood Pressure [Left Arm] 147/66 Blood Pressure [Right Arm] 147/68 O2 Sat by Pulse Oximetry 98 99 09/28/21 21:19 09/28/21 23:50 09/29/21 03:33 Temperature 97.7 F 97.5 F L Pulse Rate [Left Radial] Pulse Rate [Right Brachial] 81 72 Respiratory Rate 20 18 20 Blood Pressure [Left Arm] Blood Pressure [Right Arm] 126/64 137/60 O2 Sat by Pulse Oximetry 100 100 09/29/21 07:38 09/29/21 08:27 09/29/21 09:27 Temperature 97.6 F Pulse Rate [Left Radial] Pulse Rate [Right Brachial] 72 Respiratory Rate 20 20 20 Blood Pressure [Left Arm] Blood Pressure [Right Arm] 127/60 O2 Sat by Pulse Oximetry 99 09/29/21 12:00 09/29/21 14:22 09/29/21 15:22 Temperature 98.1 F Pulse Rate [Left Radial] Pulse Rate [Right Brachial] 73 Respiratory Rate 20 20 20 Blood Pressure [Left Arm] Blood Pressure [Right Arm] 132/63 O2 Sat by Pulse Oximetry 99 09/29/21 16:00 09/29/21 19:54 09/29/21 20:00 Temperature 97.6 F 98.3 F Pulse Rate [Left Radial] Pulse Rate [Right Brachial] 84 76 Respiratory Rate 18 18 18 Blood Pressure [Left Arm] Blood Pressure [Right Arm] 114/57 112/58 O2 Sat by Pulse Oximetry 98 95 09/29/21 20:54 09/29/21 23:11 09/30/21 00:00 Temperature 98.4 F Pulse Rate [Left Radial] Pulse Rate [Right Brachial] 89 Respiratory Rate 18 18 18 Blood Pressure [Left Arm] Blood Pressure [Right Arm] 118/58 O2 Sat by Pulse Oximetry 95 09/30/21 00:11 09/30/21 04:00 09/30/21 08:00 Temperature 98.3 F 98.1 F Pulse Rate [Left Radial] Pulse Rate [Right Brachial] 90 81 Respiratory Rate 18 20 18 Blood Pressure [Left Arm] Blood Pressure [Right Arm] 140/69 184/83 O2 Sat by Pulse Oximetry 95 94 L 09/30/21 12:00 09/30/21 13:06 09/30/21 14:33 Temperature 98.1 F Pulse Rate [Left Radial] Pulse Rate [Right Brachial] 79 Respiratory Rate 20 17 Blood Pressure [Left Arm] Blood Pressure [Right Arm] 191/75 140/63 O2 Sat by Pulse Oximetry 96 09/30/21 15:33 09/30/21 16:00 09/30/21 20:00 Temperature 98.0 F 98.1 F Pulse Rate [Left Radial] Pulse Rate [Right Brachial] 81 77 Respiratory Rate 17 18 24 Blood Pressure [Left Arm] Blood Pressure [Right Arm] 117/57 146/70 O2 Sat by Pulse Oximetry 97 95 09/30/21 21:22 09/30/21 22:22 10/01/21 00:00 Temperature 97.8 F Pulse Rate [Left Radial] Pulse Rate [Right Brachial] 78 Respiratory Rate 24 24 21 Blood Pressure [Left Arm] Blood Pressure [Right Arm] 134/65 O2 Sat by Pulse Oximetry 97 10/01/21 04:00 10/01/21 08:00 Temperature 97.7 F 98.2 F Pulse Rate [Left Radial] Pulse Rate [Right Brachial] 75 83 Respiratory Rate 24 18 Blood Pressure [Left Arm] Blood Pressure [Right Arm] 154/73 153/61 O2 Sat by Pulse Oximetry 95 96 Labs: Laboratory Last Values WBC 13.7 X10^3/uL (3.6-10.0) H 09/30/21 04:15 RBC 3.77 X10^6/uL (3.5-5.4) 09/30/21 04:15 Hgb 11.2 g/dL (12.0-16.0) L 09/30/21 04:15 Hct 33.9 % (36.0-47.0) L 09/30/21 04:15 MCV 89.9 fL (80.0-100.0) 09/30/21 04:15 MCH 29.8 pg (27.0-34.0) 09/30/21 04:15 MCHC 33.2 g/dL (33.0-35.0) 09/30/21 04:15 RDW 14.5 % (11.6-16.5) 09/30/21 04:15 Plt Count 289 X10^3/uL (150.0-450.0) 09/30/21 04:15 Plt Count Comment Adequate (ADEQUATE) 09/29/21 05:20 MPV 8.8 fL (7.4-11.0) 09/30/21 04:15 Neut % (Auto) 72.7 % (42.0-75.0) 09/30/21 04:15 Lymph % (Auto) 21.2 % (21.0-51.0) 09/30/21 04:15 [place] % (Auto) 5.2 % (0.0-13.0) 09/30/21 04:15 Eos % (Auto) 0.4 % (0.9-2.9) L 09/30/21 04:15 Baso % (Auto) 0.5 % (0.2-1.0) 09/30/21 04:15 Neut # (Auto) 9.9 x10^3/uL (2.2-4.8) H 09/30/21 04:15 Lymph # (Auto) 2.9 X10^3/uL (1.3-2.9) 09/30/21 04:15 [place] # (Auto) 0.7 x10^3/uL (0.3-0.8) 09/30/21 04:15 Eos # (Auto) 0.0 x10^3/uL (0.0-0.2) 09/30/21 04:15 Baso # (Auto) 0.1 X10^3/uL (0.0-0.1) 09/30/21 04:15 Absolute Nucleated RBC 0.0 /100WBC 09/30/21 04:15 Total Counted 100 09/29/21 05:20 Neutrophils % (Manual) 91 % (39-76) H 09/29/21 05:20 Band Neutrophils % 4 % (0-10) 09/29/21 05:20 Lymphocytes % (Manual) 5 % (13-43) L 09/29/21 05:20 Plt Morphology Comment Normal (NORMAL) 09/29/21 05:20 RBC Morphology Normal (NORMAL) 09/29/21 05:20 Sodium 143 mmol/L (136-145) 09/30/21 04:15 Corrected Sodium TNP 09/30/21 04:15 Potassium 3.7 mmol/L (3.5-5.1) 09/30/21 04:15 Chloride 109 mmol/L (98-107) H 09/30/21 04:15 Carbon Dioxide 27.3 mmol/L (21-32) 09/30/21 04:15 BUN 17 mg/dL (7-18) 09/30/21 04:15 Creatinine 0.78 mg/dL (0.55-1.02) 09/30/21 04:15 Est GFR (MDRD) Af Amer > 60 (>60) 09/30/21 04:15 Est GFR (MDRD) Non-Af > 60 (>60) 09/30/21 04:15 Glucose 92 mg/dL (65-99) 09/30/21 04:15 Calcium 8.0 mg/dL (8.5-10.1) L 09/30/21 04:15 Corrected Calcium 9.2 mg/dL (8.5-10.1) 09/27/21 23:47 Total Bilirubin 0.30 mg/dL (0.2-1.0) 09/27/21 23:47 AST 18 Units/L (15-37) 09/27/21 23:47 ALT 19 Units/L (12-78) 09/27/21 23:47 Alkaline Phosphatase 115 Units/L (46-116) 09/27/21 23:47 Total Protein 6.5 g/dL (6.4-8.2) 09/27/21 23:47 Albumin 3.0 g/dL (3.4-5.0) L 09/27/21 23:47 Globulin 3.5 g/dL (2.5-4.5) 09/27/21 23:47 Albumin/Globulin Ratio 0.9 Ratio (1.1-2.1) L 09/27/21 23:47 Specimen Type Clean catch urine 09/28/21 04:40 Urine Color Yellow (YELLOW) 09/28/21 04:40 Urine Appearance Clear (CLEAR) 09/28/21 04:40 Urine pH 6.0 (5.0 - 8.0) 09/28/21 04:40 Ur Specific [place] 1.025 (1.000-1.030) 09/28/21 04:40 Urine Protein Negative (NEGATIVE) 09/28/21 04:40 Urine Glucose (UA) Negative (NEGATIVE) 09/28/21 04:40 Urine Ketones Negative (NEGATIVE) 09/28/21 04:40 Urine Occult Blood 1+ (NEGATIVE) 09/28/21 04:40 Urine Nitrite Negative (NEGATIVE) 09/28/21 04:40 Urine Bilirubin Negative (NEGATIVE) 09/28/21 04:40 Urine Urobilinogen Normal (NORMAL) 09/28/21 04:40 Ur Leukocyte Esterase Negative (NEGATIVE) 09/28/21 04:40 Urine RBC 0-2 /HPF (0-3) 09/28/21 04:40 Urine WBC 0-2 /HPF (0-5) 09/28/21 04:40 Ur Squamous Epith Cells Rare /HPF (NEGATIVE) 09/28/21 04:40 Urine Bacteria Negative /HPF (NEGATIVE) 09/28/21 04:40 Ur Culture Indicated? Yes/culture set up 09/28/21 04:40 SARS CoV-2 RNA Rapid CHERRI Negative (NEGATIVE) 09/27/21 17:42 Reason For Visit: S/P FALL, SEVERE BACK PAIN Discharge Diagnosis All Active Problems (Updated 09/29/21 @ 11:10 by Lucille Dumont) Lumbar stenosis (Acute) Multilevel degenerative disc disease (Acute) Fall (Acute) Elbow fracture - closed (Active) Back contusion (Acute) Contusion of head (Acute) Plan of Treatment: Discharge Medications Discharge Medications: tetanus and diphtheria toxoids Allergy (Verified 09/27/21 13:41) CONTINUE taking the following medications losartan 50 mg PO BID 09/27/21 [History] New Prescriptions cephalexin 500 mg PO BID 3 Days #6 cap 10/01/21 [Rx] hydrocodone-acetaminophen 1 tab PO Q6H PRN 3 Days #12 tab MDD 4 tabs 10/01/21 [Rx] Discharge Plan Discharge Plan Patient Disposition: 01 HOME, SELF-CARE Condition: Stable Health Concerns: Post Hospitalization: new medications and changes needed to prevent readmission or further decline. Pt educated and given instructions on all concerns. Plan of Treatment: Prescription drug monitoring program results: PDMP reviewed and no concerns identified Prescriptions: New hydrocodone-acetaminophen 7.5-325 mg Tablet 1 tab PO Q6H MDD 4 tabs PRN (Reason: pain) 3 Days Qty: 12 RF: 0 cephalexin 500 mg capsule 500 mg PO BID 3 Days Qty: 6 RF: 0 Continued losartan 50 mg Tablet 50 mg PO BID RF: 0 Orders to Discharge Patient Discharge Orders: Discharge (Routine); Ordered 10/01/21 Ordered By: Lucille Dumont Follow ups/Referrals Follow ups/Referrals: Rosemary Parker [Primary Care Provider] - 3 days Instructions Instructions: Contusion, [id number] Stand Alone Forms: Excuse From Work or School, Precautions for COVID19, [facility], Patient Portal, Social Distancing
[2021-10-01 13:06] VITALS: BP 143/74
== END 2021-10-01 13:40 | disposition home or self-care (01) ==
LOC: MED/SURG 13:32 → ER 13:32 → MED/SURG 19:20
PROVIDERS: ADMIT Internal Medicine; ATTEND Internal Medicine